=== PATIENT | male | born 1970 | race American Indian/Alaskan Native ===

== ENCOUNTER 2017-12-08 22:21 | Emergency (ER) | payer SELFPAY ==
[2017-12-08] MEDS ORDERED: TYLENOL PO ONE (22:40)
[2017-12-08] MEDS ORDERED: TYLENOL ONE (22:41)
[2017-12-09 02:26] VITALS: BP 178/95
[2017-12-09 07:13] LABS: Bilirubin,Urine NEG (Negative); Blood,Urine MOD (Negative); Color,Urine Yellow (Yellow); Mucus,Urine 2+ /HPF; Urobilinogen,Urine < 2.0 mg/dL (<2.0)
[2017-12-09 07:17] LABS: WBC,Urine > 182.0 /HPF (0.0-6.0)
== END 2017-12-09 06:45 | disposition left against medical advice (07) ==
LOC: ED 22:21
DX: R10.30 Lower abdominal pain, unspecified (principal); Z53.21 Procedure and treatment not carried out due to patient leaving prior to being seen by health care provider
CPT/HCPCS: 81001